=== PATIENT | female | born 1965 | race Caucasian/White ===

== ENCOUNTER 2018-04-23 12:07 | Emergency (ER) | payer OTHER ==
[2018-04-23] MEDS ORDERED: INHALER INH (12:24)
[2018-04-23] MEDS ORDERED: CLON0.255 PO (12:24)
[2018-04-23] MEDS ORDERED: HYDR-385 PO (12:24)
[2018-04-23] MEDS ORDERED: OXCA300O4 PO (12:24)
[2018-04-23] MEDS ORDERED: BUPR-472 PO (12:24)
[2018-04-23] MEDS ORDERED: ESCI20TA38 PO (12:24)
[2018-04-23] MEDS ORDERED: CETI10CA8 PO (12:24)
[2018-04-23] MEDS ORDERED: ABILIF5PT PO (12:24)
[2018-04-23] MEDS ORDERED: BUTA1CAP6 PO (12:25)
--- NOTE | 2018-04-23 12:25 | ER Report ---
History and Physical Time Seen By MD: 12:23 Hx. of Stated Complaint: PT REPORTS LOW HR STARTED YESTERDAY, REPORTS FEELING POOR WHEN HR DECREASES, PT REPORTS FEELING DIZZY AND WEAK, INCREASED BM TODAY, SOB HPI/ROS CHIEF COMPLAINT: bradycardia with other symptoms HISTORY OF PRESENT ILLNESS: This is a 52 year old female. She reported a low heart rate that started yesterday. She reports her watch that measures her heart rate has been reading in the mid to low 40s. She is very active with cross fit and cycling and normal resting heart rate is mid to low 50s. She feels poorly now and is thinking that this is from her bradycardia. She has been dizzy. This is not a near syncope feeling or a vertigo feeling, but a nonspecific feeling of balance problem or going to fall. She has had headache and blurred vision during this time period as well. She feels a little bit short of breath, but denies chest pain. She has had some increased bowel movements today, loose. She denies any problems with abdominal pain or urination. She feels bilateral thigh weakness as well. Has gained 10 lbs over the last month without changes in activity or diet. No edema. Dizziness is present at rest or with exertion. No fevers or chills. No recent illnesses. No cough. No musculoskeletal pain. No rashes. She does have one bruise on the left elbow that she does not remember, but no other bruising. No blood in the stools or urine. Has never had symptoms like this in the past. No new vitamins, supplements, over the counter or herbals. No new medications or medication changes. REVIEW OF SYSTEMS: As above. Allergies: Coded Allergies: erythromycin base (Verified Adverse Reaction, Mild, NAUSEA/VOMITING, ) Home Meds Reported Medications Ketorolac Tromethamine 60 Mg/2ML (KETOROLAC TROMETHAMINE) 60 Mg/2 Ml Vial, 60 MG IM WEEKLY 04/23/18 Bupropion Hcl (BUPROPION XL) 300 Mg Tab.er.24h, 300 MG PO DAILY 04/23/18 Aripiprazole (Aripiprazole) 10 Mg Tablet, 10 MG PO DAILY 04/23/18 Escitalopram Oxalate (ESCITALOPRAM OXALATE) 20 Mg Tablet, 20 MG PO DAILY 04/23/18 Clonazepam (CLONAZEPAM) 1 Mg Tablet, 10 MG PO HS 04/23/18 Butalb/Acetaminophen/Caffeine (FIORICET 50-300-40) 1 Each Capsule, 1 TAB PO DIRECTED 04/23/18 Cetirizine Hcl (ZYRTEC) 10 Mg Capsule, 10 MG PO QDAY, CAPSULE 04/23/18 [Inhaler] No Conflict Check, INH BID 04/23/18 Hydrocodone Bit/Acetaminophen (HYDROCODON-ACETAMINOPHEN 5-325) 1 Each Tablet, 1 EACH PO PRN, TAB 04/23/18 Oxcarbazepine (TRILEPTAL) 300 Mg/5 Ml Oral.susp, 300 MG PO BID 04/23/18 Discontinued Reported Medications Clonazepam (CLONAZEPAM) 0.25 Mg Tab.rapdis, PO HS, #7 TAB 04/23/18 Escitalopram Oxalate (LEXAPRO) 20 Mg Tablet, 10 MG PO QDAY, TAB 04/23/18 Aripiprazole (ABILIFY) 5 Mg Tablet, PO QDAY, #10 TAB 04/23/18 Bupropion Hcl (WELLBUTRIN XL) 150 Mg Tab.er.24h, 150 MG PO QDAY, TAB 04/23/18 Past Medical/Surgical History Migraine headaches, history of concussion, asthma, endometriosis, right rotator cuff surgery, wart removal in the past, depression Reviewed Nurses Notes: Yes Constitutional Vital Sign - Last 24 Hours 04/23/18 04/23/18 04/23/18 04/23/18 12:14 12:15 12:30 12:45 Temp 97.8 Pulse 53 53 50 52 Resp 12 26 16 22 B/P (MAP) 141/90 122/80 (94) Pulse Ox 95 94 93 91 O2 Delivery Room Air 04/23/18 04/23/18 04/23/18 04/23/18 14:00 14:15 14:30 14:45 Pulse 56 56 51 54 Resp 11 12 12 14 B/P (MAP) 114/83 (93) 115/76 (89) Pulse Ox 92 93 92 91 04/23/18 04/23/18 04/23/18 04/23/18 15:00 15:15 15:30 15:45 Pulse 52 56 51 53 Resp 11 18 10 14 B/P (MAP) 122/79 (93) 117/75 (89) Pulse Ox 93 90 92 93 04/23/18 04/23/18 04/23/18 04/23/18 16:00 16:15 16:30 17:30 Pulse 50 59 57 57 Resp 21 24 12 B/P (MAP) 111/74 (86) 113/70 (84) 108/82 (91) Pulse Ox 92 91 04/23/18 04/23/18 04/23/18 04/23/18 17:45 18:00 18:15 18:17 Pulse 54 52 53 B/P (MAP) 115/81 (92) 113/75 (88) Pulse Ox 91 91 91 04/23/18 04/23/18 04/23/18 04/23/18 18:20 18:24 18:26 18:27 B/P (MAP) 111/79 (90) 112/87 (95) 113/96 (102) 112/95 (101) 04/23/18 18:30 Pulse 65 Resp 16 Pulse Ox 94 Physical Exam General Appearance: The patient is alert. No acute distress, but is worried about the lower heart rate. Non-toxic in appearance. Eyes: Pupils are equal, round. Reactive to light. No pallor, injection or icterus. Extraocular movements are intact. No nystagmus. ENT: Mucous membranes are moist. Normal oral mucosa. Posterior oropharynx is normal. Neck: Supple and non tender. Respiratory: Lungs are clear to auscultation. There are no retractions or accessory muscle use. Cardiovascular: Bradycardia with a regular rhythm. No murmurs, gallops or rubs. Normal capillary refill. No edema. No carotid bruits. Gastrointestinal: Abdomen is soft and non tender. Nondistended. Normal active bowel sounds. No costovertebral angle tenderness with percussion. Neurological: Alert and oriented x3. Cranial nerve exam with eye exam as noted above. No facial droop. Midline tongue and symmetric palate elevation. No focal weakness in extremities, equal, moving all extremities without deficits. Skin: Warm and dry. No rashes. Resolving bruise of the right elbow. Musculoskeletal: Extremities are nontender. DIFFERENTIAL DIAGNOSIS: After history and physical exam, differential diagnosis was considered for bradycardia with associated symptoms of dizziness, blurred vision, headache, and mild shortness of breath. Also associated 10 lbs weight gain. Uncertain at this time if the symptoms are related to the bradycardia, but will begin a workup for symptomatic bradycardia. Look for cardiac causes with Troponin, EKG, chest x-ray and echocardiogram. Will look for pulmonary causes with ddimer and chest x-ray. Endocrine causes are possible and can start with a TSH today. Check for central causes with a CT scan fo the brain. Consider neurologic causes as well and will consider MRI if needed. Medication causes with multiple central acting medicines, but she does state that she has been on these and no symptoms previously and none are new. No new supplements or over the counter medications. Medical Decision Making Data Points Result Diagram: 04/23/18 1224 04/23/18 1224 Laboratory Hematology Test 04/23/18 12:24 Red Blood Count 4.50 M/uL (4.17-5.56) Mean Corpuscular Volume 93.9 fL (80.0-96.0) Mean Corpuscular Hemoglobin 32.3 pg (26.0-33.0) Mean Corpuscular Hemoglobin Concent 34.4 g/dL (32.0-36.0) Red Cell Distribution Width 13.5 % (11.5-14.5) Mean Platelet Volume 8.3 fL (7.2-11.1) Neutrophils (%) (Auto) 67.7 % (39.4-72.5) Lymphocytes (%) (Auto) 23.6 % (17.6-49.6) Monocytes (%) (Auto) 7.1 % (4.1-12.4) Eosinophils (%) (Auto) 1.0 % (0.4-6.7) Basophils (%) (Auto) 0.6 % (0.3-1.4) Nucleated RBC Relative Count (auto) 0.1 /100WBC Neutrophils # (Auto) 4.9 K/uL (2.0-7.4) Lymphocytes # (Auto) 1.7 K/uL (1.3-3.6) Monocytes # (Auto) 0.5 K/uL (0.3-1.0) Eosinophils # (Auto) 0.1 K/uL (0.0-0.5) Basophils # (Auto) 0.0 K/uL (0.0-0.1) Nucleated RBC Absolute Count (auto) 0.01 K/uL Peripheral Blood Smear No Y/N D-Dimer Quantitative (PE/DVT) < 0.27 ug/ml (0-0.50) Sodium Level 136 mmol/L (137-145) Potassium Level 4.0 mmol/L (3.5-5.0) Chloride Level 101 mmol/L (98-107) Carbon Dioxide Level 27 mmol/L (22-31) Blood Urea Nitrogen 16 mg/dl (7-18) Creatinine 0.90 mg/dl (0.52-1.04) Glomerular Filtration Rate Calc > 60.0 Random Glucose 102 mg/dl (75-110) Calcium Level 8.9 mg/dl (8.4-10.2) Total Bilirubin 0.4 mg/dl (0.2-1.3) Aspartate Amino Transf (AST/SGOT) 23 U/L (0-35) Alanine Aminotransferase (ALT/SGPT) 30 U/L (0-56) Alkaline Phosphatase 66 U/L (0-126) Total Creatine Kinase 187 U/L (30-135) Troponin I < 0.012 ng/ml Total Protein 6.5 g/dl (6.3-8.2) Albumin 4.0 g/dl (3.5-5.0) Thyroid Stimulating Hormone (TSH) 1.08 uIU/ml (0.46-4.68) Human Chorionic Gonadotropin, Qual Negative (NEGATIVE) Chemistry Test 04/23/18 12:24 White Blood Count 7.3 k/uL (4.5-11.0) Red Blood Count 4.50 M/uL (4.17-5.56) Hemoglobin 14.5 g/dL (12.0-16.0) Hematocrit 42.3 % (34.0-47.0) Mean Corpuscular Volume 93.9 fL (80.0-96.0) Mean Corpuscular Hemoglobin 32.3 pg (26.0-33.0) Mean Corpuscular Hemoglobin Concent 34.4 g/dL (32.0-36.0) Red Cell Distribution Width 13.5 % (11.5-14.5) Platelet Count 218 K/uL (150-450) Mean Platelet Volume 8.3 fL (7.2-11.1) Neutrophils (%) (Auto) 67.7 % (39.4-72.5) Lymphocytes (%) (Auto) 23.6 % (17.6-49.6) Monocytes (%) (Auto) 7.1 % (4.1-12.4) Eosinophils (%) (Auto) 1.0 % (0.4-6.7) Basophils (%) (Auto) 0.6 % (0.3-1.4) Nucleated RBC Relative Count (auto) 0.1 /100WBC Neutrophils # (Auto) 4.9 K/uL (2.0-7.4) Lymphocytes # (Auto) 1.7 K/uL (1.3-3.6) Monocytes # (Auto) 0.5 K/uL (0.3-1.0) Eosinophils # (Auto) 0.1 K/uL (0.0-0.5) Basophils # (Auto) 0.0 K/uL (0.0-0.1) Nucleated RBC Absolute Count (auto) 0.01 K/uL Peripheral Blood Smear No Y/N D-Dimer Quantitative (PE/DVT) < 0.27 ug/ml (0-0.50) Glomerular Filtration Rate Calc > 60.0 Calcium Level 8.9 mg/dl (8.4-10.2) Total Bilirubin 0.4 mg/dl (0.2-1.3) Aspartate Amino Transf (AST/SGOT) 23 U/L (0-35) Alanine Aminotransferase (ALT/SGPT) 30 U/L (0-56) Alkaline Phosphatase 66 U/L (0-126) Total Creatine Kinase 187 U/L (30-135) Troponin I < 0.012 ng/ml Total Protein 6.5 g/dl (6.3-8.2) Albumin 4.0 g/dl (3.5-5.0) Thyroid Stimulating Hormone (TSH) 1.08 uIU/ml (0.46-4.68) Human Chorionic Gonadotropin, Qual Negative (NEGATIVE) Coagulation Test 04/23/18 12:24 D-Dimer Quantitative (PE/DVT) < 0.27 ug/ml EKG/Imaging EKG Interpretation 12 lead EKG: Rhythm: Bradycardia, rate 50, sinus bradycardia [place]: normal QRS: normal ST segments: No ST elevation or depression, a few leads with nonspecific T -wave flattening Imaging EXAMINATION: CT head without IV contrast HISTORY: Bradycardia, dizziness, blurred vision. COMPARISON: Brain MRI from 02/24/2008. TECHNIQUE: Contiguous axial images were obtained from the skull base to the vertex without intravenous contrast. Sagittal and coronal reformatted images are also submitted. One of the following dose optimization techniques was utilized in the performance of this exam: Automated exposure control; adjustment of the mA and/ or kV according to the patient's size; or use of an iterative reconstruction technique. Specific details can be referenced in the facility's radiology CT exam operational policy. FINDINGS: Brain volume: Normal. Ventricles: Normal. Acute ischemic changes: None. Hemorrhage: No acute intracranial hemorrhage. Masses/edema: None. Harding-white: Negative. White matter: Normal. Vessels: Negative. Extra-axial: Negative. Calvarium/scalp: Negative. Skull base/visualized face: Negative. Visualized sinuses/orbits: Negative. IMPRESSION: No intracranial mass lesion or hemorrhage. No CT evidence of acute infarct. Report Dictated By: Jacqueline Dey MD at 04/23/2018 1:24 PM EXAMINATION: Chest radiographs 2 views HISTORY: Bradycardia. Shortness of breath, chest tightness. COMPARISON: 12/18/2016. FINDINGS: PA and lateral views of the chest are submitted. Lines/tubes: None. Lungs/pleura: No focal consolidation or pleural effusion. Heart: Negative. Mediastinum: Negative. Bony structures/body wall: Negative. IMPRESSION: No radiographic evidence of acute cardiopulmonary disease. Report Dictated By: Jacqueline Dey MD at 04/23/2018 1:29 PM Echocardiogram, complete, transthoracic: Normal left ventricle size thickness and function with ejection fraction estimated between 55 and 60%, no regional wall motion abnormalities, no evidence of left ventricular diastolic dysfunction. Right ventricle normal size thickness and function with normal systolic function. Atria are normal in size as well with no evidence of shunt. Mitral valve leaflets normal with no stenosis or prolapse and trace regurg. Tricuspid valve leaflets normal, moderate tricuspid regurg. Right ventricular systolic pressure is normal. Aortic valve trileaflet, normal, no evidence of stenosis or regurg, pulmonic valve normal with no evidence of stenosis or regurg. Great vessels show a normal aortic root normal inferior vena cava and normal right atrial pressure. No evidence of pericardial effusion EXAMINATION: MRI brain without IV contrast MRI brain with IV contrast HISTORY: Headache, dizziness, blurred vision. COMPARISON: Brain MRI from 02/24/[address] head from 04/23/2018. TECHNIQUE: Multi-planar, multi-sequence brain MRI was performed before and after IV gadolinium. CONTRAST: 12 mL of IV MultiHance gadolinium. FINDINGS: Brain volume: Normal. Sagittal midline structures: Sagittal midline structures are normally formed. The cerebellar tonsils are normal in position and shape. Ventricles: Normal. Acute ischemic changes: No diffusion restriction present to suggest acute ischemia. Hemorrhage: No acute hemorrhage or hemosiderin staining. Masses/edema: None. Enhancement: No abnormal intracranial enhancement. Harding-white: Negative. White matter: No focal white matter signal abnormality or lesion. Vessels: Normal. Extra-axial: None. Calvarium/scalp: Negative. Skull base: Negative. Visualized sinuses/orbits: Minimal mucosal thickening in the paranasal sinuses. Visualized upper neck: Negative. IMPRESSION: Normal enhanced brain MRI without intracranial mass lesion, acute infarct or hemorrhage. Report Dictated By: Jacqueline Dey MD at 04/23/2018 5:37 PM ED Course/Re-evaluation Clinical Indication for ER IV: IV Access ED Course Initial evaluation was done including labs, EKG, chest x-ray, non-contrast head CT and and Echocardiogram. These are noted above and did not reveal a cause for the bradycardia and the other symptoms of headache, dizziness, blurred vision and shortness of breath. Her vital signs remained stable other than the bradycardia. She mainly remained in the 50s, with a decrease to 47 at the lowest. I discussed these results with the patient and also called and discussed with Cardiology, Dr. Rasheed at [facility]. After our conversation, he did not think that these symptoms were related to the bradycardia. After this, we did an MRI of the brain with and without contrast. This was negative as well. Orthostatic vital signs and exertional vital signs in the ER were normal and showed good increases in pulse and blood pressure with exertion. Decision to Disposition Date: Apr 23, 2018 Decision to Disposition Time: 18:10 Depart Departure Latest Vital Signs Vital Signs Date Time Temp Pulse Resp B/P (MAP) Pulse Ox O2 Delivery O2 Flow Rate FiO2 04/23/18 18:30 65 16 94 04/23/18 18:27 112/95 (101) 04/23/18 12:14 97.8 Room Air Impression: Primary Impression: Bradycardia Additional Impressions: Dizziness Headache Condition: Improved Disposition: HOME OR SELF-CARE Patient Instructions: Acute Headache (ED), Bradycardia (ED), Dizziness (ED) Additional Instructions: Please follow-up with Dr. Ellison as we discussed. We did not find any dangerous causes of your symptoms today. Avoid any heavy physical activity until you follow up. Problem Qualifiers Additional Impressions: Headache Headache type: unspecified Headache chronicity pattern: unspecified pattern Intractability: not intractable Qualified Codes: R51 - Headache VINCENT NUÑEZ MD Apr 23, 2018 12:25
[2018-04-23] MEDS ORDERED: CLON-304 PO (12:37)
[2018-04-23] MEDS ORDERED: ESCI20TA8 PO (12:37)
[2018-04-23] MEDS ORDERED: BUPR300T56 PO (12:37)
[2018-04-23] MEDS ORDERED: KETO60VI IM (12:37)
[2018-04-23] MEDS ORDERED: ARIP10TA5 PO (12:37)
[2018-04-23 13:05] LABS: PLATELET COUNT, AUTOMATED 218 K/uL (150-450)
--- NOTE | 2018-04-23 13:30 | RADIOLOGY IMAGING REPORT ---
FACILITY: [facility] - [place] PATIENT NAME: Maxine Hudson : 1965 MR: [id number] V: [id number] EXAM DATE: [id number] ORDERING PHYSICIAN: VINCENT NUÑEZ TECHNOLOGIST: Location: [facility] [place] Patient: Maxine Hudson : 1965 Visit/Account:[id number] Date of Sevice: 04/23/2018 EXAMINATION: CT head without IV contrast HISTORY: Bradycardia, dizziness, blurred vision. COMPARISON: Brain MRI from 02/24/2008. TECHNIQUE: Contiguous axial images were obtained from the skull base to the vertex without intraven ous contrast. Sagittal and coronal reformatted images are also submitted. One of the following dose optimization techniques was utilized in the performance of this exam: Autom ated exposure control; adjustment of the mA and/or kV according to the patient's size; or use of an i terative reconstruction technique. Specific details can be referenced in the facility's radiology C T exam operational policy. FINDINGS: Brain volume: Normal. Ventricles: Normal. Acute ischemic changes: None. Hemorrhage: No acute intracranial hemorrhage. Masses/edema: None. Harding-white: Negative. White matter: Normal. Vessels: Negative. Extra-axial: Negative. Calvarium/scalp: Negative. Skull base/visualized face: Negative. Visualized sinuses/orbits: Negative. IMPRESSION: No intracranial mass lesion or hemorrhage. No CT evidence of acute infarct. Report Dictated By: Jacqueline Dey MD at 04/23/2018 1:24 PM Report E-Signed By: Jacqueline Dey MD at 04/23/2018 1:26 PM WSN:[id number]
--- NOTE | 2018-04-23 13:32 | EKG ---
[place] [facility] [place] FRANCISCO HO : [id number] MR: [id number] V: [id number] EXAM DATE: ORDERING PHYSICIAN: VINCENT NUÑEZ TECHNOLOGIST: KAMILAH Simpson Reason : DIZZY Blood Pressure : / mmHG Vent. Rate : 050 BPM Atrial Rate : 050 BPM P-R Int : 162 ms QRS Dur : 084 ms QT Int : 474 ms P-R-T Axes : 073 021 038 degrees QTc Int : 432 ms Sinus bradycardia Otherwise normal ECG No previous ECGs available Confirmed by SIENA ODONNELL ([id number]) on 04/23/2018 7:18:30 PM Referred By: JOAQUIN Confirmed By:SIENA ODONNELL
--- NOTE | 2018-04-23 13:34 | RADIOLOGY IMAGING REPORT ---
FACILITY: [facility] PATIENT NAME: Maxine Hudson : 1965 MR: [id number] V: [id number] EXAM DATE: ORDERING PHYSICIAN: VINCENT NUÑEZ TECHNOLOGIST: Location: [facility] Patient: Maxine Hudson : 1965 Visit/Account:[id number] Date of Sevice: 04/23/2018 EXAMINATION: Chest radiographs 2 views HISTORY: Bradycardia. Shortness of breath, chest tightness. COMPARISON: 12/18/2016. FINDINGS: PA and lateral views of the chest are submitted. Lines/tubes: None. Lungs/pleura: No focal consolidation or pleural effusion. Heart: Negative. Mediastinum: Negative. Bony structures/body wall: Negative. IMPRESSION: No radiographic evidence of acute cardiopulmonary disease. Report Dictated By: Jacqueline Dey MD at 04/23/2018 1:29 PM Report E-Signed By: Jacqueline Dey MD at 04/23/2018 1:30 PM WSN:[id number]
[2018-04-23] MEDS ORDERED: GADOBENATE 529MG/1ML 15ML VIAL IVP ONE (17:07)
--- NOTE | 2018-04-23 17:44 | RADIOLOGY IMAGING REPORT ---
FACILITY: [facility] PATIENT NAME: Maxine Hudson : 1965 MR: [id number] V: [id number] EXAM DATE: [id number] ORDERING PHYSICIAN: VINECNT NUÑEZ TECHNOLOGIST: Location: [facility] Patient: Maxine Hudson : 1965 Visit/Account:[id number] Date of Sevice: 04/23/2018 EXAMINATION: MRI brain without IV contrast MRI brain with IV contrast HISTORY: Headache, dizziness, blurred vision. COMPARISON: Brain MRI from 02/24/[address] head from 04/23/2018. TECHNIQUE: Multi-planar, multi-sequence brain MRI was performed before and after IV gadolinium. CONTRAST: 12 mL of IV MultiHance gadolinium. FINDINGS: Brain volume: Normal. Sagittal midline structures: Sagittal midline structures are normally formed. The cerebellar tonsils are normal in position and shape. Ventricles: Normal. Acute ischemic changes: No diffusion restriction present to suggest acute ischemia. Hemorrhage: No acute hemorrhage or hemosiderin staining. Masses/edema: None. Enhancement: No abnormal intracranial enhancement. Harding-white: Negative. White matter: No focal white matter signal abnormality or lesion. Vessels: Normal. Extra-axial: None. Calvarium/scalp: Negative. Skull base: Negative. Visualized sinuses/orbits: Minimal mucosal thickening in the paranasal sinuses. Visualized upper neck: Negative. IMPRESSION: Normal enhanced brain MRI without intracranial mass lesion, acute infarct or hemorrhage. Report Dictated By: Jacqueline Dey MD at 04/23/2018 5:37 PM Report E-Signed By: Jacqueline Dey MD at 04/23/2018 5:41 PM WSN:[id number]
[2018-04-23 18:27] VITALS: BP 112/95
[2018-05-07] MEDS ORDERED: ALBU8.5H IH (11:03)
[2018-05-07] MEDS ORDERED: DOXY50SY2 PO (11:03)
[2018-05-07] MEDS ORDERED: SUMA25TA26 PO (11:03)
[2018-05-07] MEDS ORDERED: OXYC-857 PO (11:03)
[2018-05-07] MEDS ORDERED: ALB18R INH (11:03)
[2018-05-07] MEDS ORDERED: BOTOX INJECTIONS INJ (11:03)
[2018-05-07] MEDS ORDERED: CLON-389 PO (11:03)
== END 2018-04-23 18:39 | disposition home or self-care (01) ==
LOC: ER 12:16
DX: R00.1 Bradycardia, unspecified (principal); R51 Headache; R42 Dizziness and giddiness
CPT/HCPCS: 70450; 70553; 71046; 82550; 84443; 84484; 84703; 85025; 85379; 93005; 93306; 99285; A9577; 82040; 82247; 82310; 82374; 82435; 82565; 82947; 84075; 84132; 84155; 84295; 84450; 84460; 84520; 99284

== ENCOUNTER → 2018-04-26 | Outpatient (CLI) | payer OTHER ==
[~2018-04-26] MED LIST: ABILIF5PT PO; ARIP10TA5 PO; BUPR-472 PO; BUPR300T56 PO; BUTA1CAP6 PO; CETI10CA8 PO; CLON-304 PO; CLON0.255 PO; ESCI20TA38 PO; ESCI20TA8 PO; HYDR-385 PO; INHALER INH; KETO60VI IM; OXCA300O4 PO
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
== END ==
LOC: CT 03:01
PROVIDERS: ATTEND Orthopaedic Surgery Hand Surgery
DX: M19.011 Primary osteoarthritis, right shoulder (principal)

== ENCOUNTER → 2018-05-10 | Outpatient (CLI) | payer OTHER ==
[~2018-05-10] MED LIST changes: +ALB18R INH; +ALBU8.5H IH; +BOTOX INJECTIONS INJ; +CLON-389 PO; +DOXY50SY2 PO; +OXYC-857 PO; +SUMA25TA26 PO
--- NOTE | 2018-05-13 10:02 | RT HOLTER TEST ---
FACILITY: [facility] PATIENT NAME: FRANCISCO HO : [id number] MR: [id number] V: [id number] EXAM DATE: ORDERING PHYSICIAN: YUNI MELISSA TECHNOLOGIST: ISAAC Engel-alyce date: 2018-05-10 15:33:00 Duration: 47:56:00 Test Indications: DIZZY Medications: 056606 QRS complexes 19 Ventricular ectopics which represent <1 % of total QRS comp. 10 Supraventricular ectopics which represent <1 % of total QRS comp. * Paced QRS complexes which represent % of total QRS comp. VENTRICULAR ECTOPY 16 Isolated 0 Bigeminal Cycles 0 Couplets 1 Runs 3 Beats in Runs 3 Beats LONGEST at 76 BPM at 18:09:43 2018-05-11 3 Beats FASTEST at 76 BPM at 18:09:43 2018-05-11 SUPRAVENTRICULAR ECTOPY 10 Isolated 0 Couplets 0 Runs 0 Beats in Runs * Beats LONGEST at * BPM at :: -- * Beats FASTEST at * BPM at :: -- HEART RATES 49 MIN at 01:33:29 2018-05-12 70 AVG 151 MAX at 16:24:49 2018-05-10 LONGEST RR 1.304 secs at 01:33:29 2018-05-12 S-T LEVELS Channel 1 -12.800 mm MIN at 15:33:00 2018-05-10 -12.800 mm MAX at 15:33:00 2018-05-10 Channel 2 -12.800 mm MIN at 15:33:00 2018-05-10 -12.800 mm MAX at 15:33:00 2018-05-10 Channel 3 -12.800 mm MIN at 15:33:00 2018-05-10 -12.800 mm MAX at 15:33:00 2018-05-10 Sinus rhythm Premature ventricular complexes (3 beat run) Confirmed by LINETTE CONTI ([id number]) on 05/13/2018 10:00:33 AM Referred By: Overread By: LINETTE CONTI
== END ==
LOC: RESP 04:01
PROVIDERS: ATTEND Emergency Medicine
DX: I49.3 Ventricular premature depolarization (principal)
CPT/HCPCS: 93225; 93226

== ENCOUNTER → 2018-05-17 | Outpatient (CLI) | payer OTHER ==
--- NOTE | 2018-05-17 15:29 | RADIOLOGY IMAGING REPORT ---
FACILITY: [facility] PATIENT NAME: FRANCISCO HO : [id number] MR: [id number] V: [id number] EXAM DATE: ORDERING PHYSICIAN: YUNI MELISSA TECHNOLOGIST: Sanna Fernández PROCEDURE:BILATERAL DIAGNOSTIC DIGITAL MAMMOGRAM WITH CAD ASSISTED INTERPRETATION & 3D TOMOSYNTHESIS COMPARISON:Prior mammograms 11/06/14, 04/29/13. INDICATIONS:Bilateral sore nipples FINDINGS: Extremely dense heterogeneous fibroglandular tissue is seen throughout the breasts. The parenchymal pattern has remained stable allowing for difference in mammographic technique & patient positioning. There is no evidence of malignant appearing mass, malignant appearing calcifications or other secondary sign of malignancy in either breast. DIAGNOSTIC CATEGORY 1--NEGATIVE. RECOMMENDATIONS: ROUTINE MAMMOGRAM AND CLINICAL EVALUATION. CLINICAL EVALUATION. IMPRESSION: BIRADS 1: Negative. No significant abnormality is seen. Clinical follow-up recommended for patient's sore nipples. Dictated by: Josey Adams M.D. on 05/17/2018 at 13:56 Transcribed by: EMERALD on 05/17/2018 at 14:01 Approved by: Josey Adams M.D. on 05/17/2018 at 15:28 [facility]
== END ==
LOC: MAMO 02:31
PROVIDERS: ATTEND Emergency Medicine
DX: R92.8 Other abnormal and inconclusive findings on diagnostic imaging of breast (principal)
CPT/HCPCS: 77062; 77066

== ENCOUNTER → 2018-05-23 | Outpatient (CLI) | payer OTHER | LOC: LAB 15:39 | PROVIDERS: ATTEND Emergency Medicine | DX: F32.9 Major depressive disorder, single episode, unspecified (principal); E83.19 Other disorders of iron metabolism; E78.5 Hyperlipidemia, unspecified | CPT/HCPCS: 82306; 82465; 82607; 82728; 83540; 83550; 83718; 84478 ==

== ENCOUNTER 2018-06-19 00:52 | Day surgery (SDC) | payer OTHER ==
[~2018-06-19] VITALS: Ht 154.9 cm; Wt 56.7 kg
[~2018-06-19 00:52] MED LIST changes: +CHOL500045 PO; +CYAN20004 PO
[2018-06-19 06:59] VITALS: BP 116/83
[2018-06-19] MEDS ORDERED: NORMOSOL R SOLN(*) 1000 ML BAG 1,000 ML IV PRN (07:10)
[2018-06-19] MEDS ORDERED: LIDOCAINE/SOD BICARB 8.4% SYR ID ONE (07:10)
[2018-06-19 08:50] VITALS: BP 89/58
--- NOTE | 2018-06-19 08:52 | Short(Outpt) Discharge Summary ---
Discharge Summary Reason for Hosp/Final Diag: (1) Colon cancer screening Status: Chronic Hospital Course & Plan: Colonoscopy with polypectomy x1 completed without problems. Departure Discharge to: Home, Self Care Discharge Instructions Home Meds Reported Medications Cholecalciferol (Vitamin D3) (VITAMIN D) 5,000 Unit Tablet, 5000 UNIT PO DAILY 05/29/18 Cyanocobalamin (Vitamin B-12) (Vitamin B-12) 2,000 Mcg Tablet, 1 TAB PO DAILY 05/29/18 Albuterol Sulfate 90 Mcg/Act (PROAIR HFA 90 MCG/ACT) 8.5 Gm Hfa.aer.ad, 1-2 PUFF IH before exercise, INHALER 05/07/18 Albuterol Sulfate (VENTOLIN HFA) 18 Gm Inh, 1-2 PUFF INH PRN, INH 05/07/18 Doxycycline Calcium (VIBRAMYCIN) 50 Mg/5 Ml Syrup, 50 MG PO BID 05/07/18 Oxycodone Hcl/Acetaminophen 10-325 Mg (ENDOCET 10-325 MG TABLET) 1 Each Tablet, 1 EACH PO QDAY PRN for PRN, TAB 05/07/18 [botox injections] No Conflict Check, 1 EACH INJ Q3 months 05/07/18 Clonazepam (CLONAZEPAM) 1 Mg Tab.rapdis, 2 MG PO QHS, #12 TAB 05/07/18 Ketorolac Tromethamine 60 Mg/2ML (KETOROLAC TROMETHAMINE) 60 Mg/2 Ml Vial, 60 MG IM WEEKLY 04/23/18 Bupropion Hcl (BUPROPION XL) 300 Mg Tab.er.24h, 300 MG PO DAILY 04/23/18 Aripiprazole (Aripiprazole) 10 Mg Tablet, 10 MG PO DAILY 04/23/18 Escitalopram Oxalate (ESCITALOPRAM OXALATE) 20 Mg Tablet, 20 MG PO DAILY 04/23/18 Butalb/Acetaminophen/Caffeine (FIORICET 50-300-40) 1 Each Capsule, 1 TAB PO DIRECTED 04/23/18 Cetirizine Hcl (ZYRTEC) 10 Mg Capsule, 10 MG PO PRN, CAPSULE 04/23/18 Hydrocodone Bit/Acetaminophen (HYDROCODON-ACETAMINOPHEN 5-325) 1 Each Tablet, 1 EACH PO PRN, TAB 04/23/18 Oxcarbazepine (TRILEPTAL) 300 Mg/5 Ml Oral.susp, 300 MG PO BID 04/23/18 Diet: Regular Activity: As Tolerated Special Instructions: Your colonoscopy was completed without any problems and your prep was excellent (Good Job!!). I removed a tiny polyp from your colon and it was sent to pathology. My office will call you in the next week or so to let you know what the polyp is and when your next colonoscopy should be (either 5 or 10 years) depending on pathology results. Copies to: YUNI MELISSA MD ; LINETTE SEGURA MD Jun 19, 2018 08:52
[2018-06-19 09:15] VITALS: BP 92/60
[2018-06-19 09:45] VITALS: BP 98/67
[2018-06-19 09:48] VITALS: BP 101/75
[2018-06-19 09:49] VITALS: BP 111/75
[2018-06-19] MEDS ORDERED: PROPOFOL EMUL(*) 10MG/ML 20 ML 40 ML ONE (12:08)
== END 2018-06-19 10:10 | disposition home or self-care (01) ==
LOC: OR 00:52
PROVIDERS: ATTEND Surgery
DX: Z12.11 Encounter for screening for malignant neoplasm of colon (principal); D12.0 Benign neoplasm of cecum
CPT/HCPCS: 00811; 45380; 88305; J2704